=== PATIENT | male | born 1970 | race Caucasian/White ===

== ENCOUNTER 2019-09-24 14:53 | Emergency (ER) | payer BC ==
[~2019-09-24] VITALS: Ht 165.1 cm; Wt 86.2 kg
[2019-09-24 14:54] VITALS: BP 119/92
--- NOTE | 2019-09-24 15:12 | NUR ---
48/M TO ED C/O GENERALIZED BODY ACHES ACCOMPANIED WITH COUGH AND THROAT PAIN FOR THE LAST WEEK. PT DENIES ANY DIFFICULTY SPEAKING OR SWALLOWING. LUNG SOUNDS CLEAR BILATERALLY. NO DISTRESS NOTED. IN BED FOR MSE.
[2019-09-24 15:30] VITALS: BP 119/92
--- NOTE | 2019-09-24 15:30 | NUR ---
Patient discharged with v/s stable. Written and verbal after care instructions given and explained. Patient alert, oriented and verbalized understanding of instructions. Ambulatory with steady gait. All questions addressed prior to discharge. ID band removed. Patient advised to follow up with PMD. Rx of PROMETHAZINE, MOTRIN given. Patient educated on indication of medication including possible reaction and side effects. Opportunity to ask questions provided and answered.
== END 2019-09-24 15:30 | disposition home or self-care (01) ==
LOC: MED 14:53
DX: J11.1 Influenza due to unidentified influenza virus with other respiratory manifestations (principal)
CPT/HCPCS: 99283

== ENCOUNTER 2019-09-25 10:53 | Emergency (ER) | payer BC ==
[~2019-09-25] VITALS: Ht 170.2 cm; Wt 72.6 kg
--- NOTE | 2019-09-25 11:02 | NUR ---
PT AMBULATED TO ER BED 05
--- NOTE | 2019-09-25 11:10 | NUR ---
48 Y/O M C/O FEVER X2 DAYS. PT DENIES N/V DIAHRREA. PT FEVER 104.3. COOLING MEASURES DONE, PT IN GOWN, ON MONITOR. VSS. PT GIVEN TYLENOL/MOTRIN. POSITIONED FOR COMFORT. NKA
[2019-09-25 11:16] VITALS: BP 109/56
[2019-09-25] MEDS ORDERED: IBUPROFEN 800 MG TAB PO ONE (11:20)
[2019-09-25] MEDS ORDERED: ACETAMINOPHEN EXTRA STRENGTH 500 MG TAB PO ONE (11:20)
--- NOTE | 2019-09-25 11:36 | NUR ---
FLU SWAB PERFORMED, SENT TO LAB
--- NOTE | 2019-09-25 12:20 | NUR ---
PT VSS, TEMPERATURE DOWN FROM 104 TO 100.6. PT RESTING COMFORTABLY
--- NOTE | 2019-09-25 12:25 | NUR ---
TO GO LUNCH ORDERED FOR PATIENT. PT POS FOR INFLUENZA A, REPORT TO ANA ORTIZ
[2019-09-25 12:49] VITALS: BP 108/50
--- NOTE | 2019-09-25 12:49 | NUR ---
Patient discharged with v/s stable. Written and verbal after care instructions given and explained. Patient verbalized understanding. Ambulatory with steady gait. All questions addressed prior to discharge. Advised to follow up with PMD. Provided with work excuse until 09/28/2019.
== END 2019-09-25 12:49 | disposition home or self-care (01) ==
LOC: MED 10:53
DX: J10.1 Influenza due to other identified influenza virus with other respiratory manifestations (principal)
CPT/HCPCS: 71045; 81002; 87804; 99284; Q0092